=== PATIENT | female | born 1970 | race Caucasian/White ===

== ENCOUNTER 2016-09-16 14:10 | Outpatient (CLI) | END 2016-09-16 14:11 | disposition home or self-care (01) | LOC: LAB 14:10 | PROVIDERS: ATTEND Transplant Surgery | DX: N18.9 Chronic kidney disease, unspecified (principal) | CPT/HCPCS: 36415 ==

== ENCOUNTER 2016-10-26 10:49 | Outpatient (CLI) | END 2016-10-26 10:50 | disposition home or self-care (01) | LOC: LAB 10:49 | PROVIDERS: ATTEND Transplant Surgery | DX: N18.9 Chronic kidney disease, unspecified (principal) | CPT/HCPCS: 36415 ==

== ENCOUNTER 2016-11-05 14:14 | Outpatient (CLI) ==
--- NOTE | 2016-11-05 14:51 | DI ---
EXAM: PA and lateral views of the chest HISTORY: Kidney transplant evaluation COMPARISON: Chest x-ray 10/09/2015 FINDINGS: The cardiomediastinal silhouette is normal. There is no pneumothorax or pleural effusion . There is no consolidation, nodule or mass. The osseous structures are stable. IMPRESSION: No acute cardiopulmonary process or significant change from prior.
[2016-11-05 14:52] LABS: HEMATOCRIT 30.2 % (37.0-47.0); MEAN CORPUSCULAR HEMOGLOBIN 29.2 pg (27.0-31.0); MEAN CORPUSCULAR HGB CONC 33.1 (31.8-35.4); RED BLOOD COUNT 3.43 10^6/ul (4.20-5.40); WHITE BLOOD COUNT 7.09 K/ul (4.6-10.2)
[2016-11-05 15:07] LABS: ALBUMIN 3.8 g/dL (3.4-5.0); ALBUMIN/GLOBULIN RATIO 1.19; ANION GAP 16.2; BILIRUBIN,TOTAL 0.28 mg/dL (0.00-1.20); BUN/CREATININE RATIO 12.6; CALCIUM 8.5 mg/dL (8.2-10.2); CREATININE 3.49 mg/dL (0.60-1.30); PHOSPHORUS 5.7 mg/dL (2.5-4.9); POTASSIUM 4.2 mmol/L (3.5-5.10)
[2016-11-10 07:49] LABS: HEPATITIS B CORE ANTIBODY NEGATIVE
[2016-11-10 07:50] LABS: HIV ANTIBODIES QUALITATIVE NON REACTIVE (Nonreactive)
[2016-11-10 07:53] LABS: HEPATITIS B SURFACE ANTIBODY REACTIVE
== END 2016-11-05 14:15 | disposition home or self-care (01) ==
LOC: LAB 14:14
PROVIDERS: ATTEND Internal Medicine Nephrology
DX: N18.6 End stage renal disease (principal)
CPT/HCPCS: 36415; 80053; 83970; 84100; 85025; 85027; 86701; 86704; 86706; 86803; 87340; 93005; 93010

== ENCOUNTER 2016-11-13 14:23 | Outpatient (CLI) ==
[2016-11-13 15:04] LABS: HEMATOCRIT 30.8 % (37.0-47.0); HEMOGLOBIN 9.8 g/dl (12.0-16.0); MEAN CORPUSCULAR HEMOGLOBIN 29.2 pg (27.0-31.0); MEAN CORPUSCULAR HGB CONC 31.8 (31.8-35.4); MEAN CORPUSCULAR VOLUME 91.7 fl (81.0-99.0); RED BLOOD COUNT 3.36 10^6/ul (4.20-5.40); WHITE BLOOD COUNT 7.87 K/ul (4.6-10.2)
[2016-11-13 15:11] LABS: BILIRUBIN,URINE Negative (NEGATIVE); KETONES,URINE Negative (NEGATIVE); LEUKOCYTE ESTERASE ,URINE 1+ (NEGATIVE); NITRITE,URINE Negative (NEGATIVE); PROTEIN,URINE 2+ (NEGATIVE); URINE, BLOOD Trace-intact (NEGATIVE)
[2016-11-13 15:28] LABS: ADD URINE MICROSCOPIC YES
[2016-11-13 15:32] LABS: BACTERIA,URINE TRACE (NOT PRESENT)
[2016-11-13 15:49] LABS: ALBUMIN 3.6 g/dL (3.4-5.0); ALBUMIN/GLOBULIN RATIO 1.13; ANION GAP 15.2; BILIRUBIN,TOTAL 0.22 mg/dL (0.00-1.20); BUN/CREATININE RATIO 13.83; CALCIUM 8.9 mg/dL (8.2-10.2); CREATININE 3.47 mg/dL (0.60-1.30); PHOSPHORUS 4.8 mg/dL (2.5-4.9); POTASSIUM 4.2 mmol/L (3.5-5.10); TOTAL PROTEIN 6.8 g/dL (6.4-8.2); URIC ACID 7.6 mg/dL (2.4-6.0)
[2016-11-14 07:49] LABS: URINE CREATINE 70.6 mg/dL (Not Estab.)
== END 2016-11-13 14:24 | disposition home or self-care (01) ==
LOC: LAB 14:23
PROVIDERS: ATTEND Nurse Practitioner
DX: N18.5 Chronic kidney disease, stage 5 (principal)
CPT/HCPCS: 36415; 80053; 81001; 82306; 82570; 83735; 83970; 84100; 84156; 84550; 85027; 87086

== ENCOUNTER 2016-11-16 08:15 | Outpatient (CLI) ==
--- NOTE | 2016-11-16 13:00 | MRI ---
Exam: MRI of the abdomen without contrast and MRCP. History: MRCP evaluate for kidney transplant. Fluid signal cyst in pancreatic head/body on prior M RI. Procedures: Axial and coronal T2, axial T1W in and out of phase, axial inversion recovery, diffusio n weighted images with ADC maps and coronal heavily T2W MRCP images of the abdomen were obtained wit hout the use of contrast. Maximum intensity projection images were also created and reviewed. Comparison: 10/16/2015 MRCP. Findings: Evaluation of the soft tissues is limited without the use of intravenous contrast. 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 The cindy er is normal in size, without significant signal drop on opposed phase imaging. There is no apparen t intrahepatic mass or biliary ductal dilatation. The spleen and adrenal glands appear stable. Gio ng the anterior junction of the pancreatic head/body there is redemonstration of a T2 hyperintense, T1 hypointense structure measuring approximately 13 mm x 8 mm x 15 mm craniocaudal compared to 12 mm x 12 mm x 21 mm on the prior study. There is no new pancreatic lesion visualized. The kidneys ale ear mildly atrophic as before. There is no hydronephrosis. There are a few sub-centimeter fluid si gnal probable cysts in both kidneys. The stomach and the visualized portions of small and large bow el appear grossly within normal limits. In the right lower quadrant there is a well-circumscribed 2 .6 cm T2 hyperintense rounded lesion which measured up to 2.3 cm on the prior study. There is no fr ee fluid or lymphadenopathy identified in the abdomen. Abdominal aorta is not dilated. MRCP images are degraded by motion artifact, these demonstrate no intrahepatic biliary ductal dilatation. The gallbladder is nondilated, without filling defect. The common bile duct measures up to 6.6 mm in di ameter without filling defect. There is no pancreatic ductal dilatation or evidence of pancreatic d ivisum. Impressions: Compared to 10/16/2015 there is redemonstration of a posterior right diaphragmatic def ect with herniation of fat into the posterior right thorax. 13 mm x 8 mm x 15 mm fluid signal cystic structure along the anterior junction of the pancreatic hea d/body, this measured up to 12 mm x 12 mm x 21 mm previously. Considerations would include the panc reatic cyst and cystic neoplasm such as intraductal papillary mucinous neoplasm. No biliary ductal dilatation or evidence of choledocholithiasis. MRCP images are somewhat degraded by motion artifact. No pancreatic ductal dilatation. Redemonstration of bilateral renal atrophy with subcentimeter fluid signal probable cysts in the nicole al cortices. There is no hydronephrosis. 2.6 cm well-circumscribed fluid signal lesion in the right lower abdominal fat, this measured 2.3 cm on the previous examination.
--- NOTE | 2016-11-18 09:04 | MAMMO ---
EXAM: Bilateral digital screening mammogram History: Screening Comparison: Bilateral mammogram 10/16/2015 Findings: MLO and CC views of bilateral breasts demonstrate scattered fibroglandular breast parench yma. Stable benign bilateral lymph nodes. There are no suspicious masses or abnormal microcalcifica tions. Impression: Benign stable mammogram. Recommend followup routine screening mammography in 1 year. BIRADS 2
--- NOTE | 2016-11-19 07:15 | STRESSECHO ---
Date of Test: 11/16/2016 Reason for Exam: KIDNEY TRANSPLANT EVALUATION, STATUS POST VSD REPAIR Ordering Physician: DR. CM ([facility]), DR. HERNANDEZ Current Medications: ROCALTROL, LIPITOR, LEVOTHYROXINE, SODIUM BICARBONATE, AVAPRO, ULORIC, FERROUS SULFATE, PYRIDOXINE, ISONIAZID Physical Findings: S1,S2, NO S3 Resting EKG: SINUS RHYTHM/ NO ACUTE CHANGES Target Heart Rate: 146/172 Height: 64" Weight: 203lbs OXYGEN SATURATION AT REST ON ROOM AIR 98% STAGE MPH/GRADE HEART RATE BPM BLOOD PRESSURE mmhg RHYTHM S-T SEGMENT +/- UP DOWN SYMPTOMS,COMMENTS At Rest 75 118/62 SR X NONE 1 1.7/10% 150 148/90 SR X NONE 2 2.5/12% 3 3.4/14% 4 4.2/16% 5 5.0/18% Immediately after 164 SR X FATIGUE Durations of Exercise: 5 MINUTES AND 0 SECONDS Maximum Heart Rate Reached: 164 Reason for Termination: FATIGUE Minutes Post Exercise: 3 HeartRate: 105 Blood Pressure: 146/50 Rhythm: SR S-T Segment: +/- Symptons: NONE INTERPRETATION: 99% OXYGEN SATURATION WITH EXERCISE ON ROOM AIR METS=7.0 1. TEST NEGATIVE FOR ISCHEMIC ST-T WAVE CHANGES 2. NO CHEST PAIN OR CHEST DISCOMFORT 3. NO ARRHYTHMIAS 4. BLOOD PRESSURE RESPONSE NORMAL 5. NORMAL LEFT VENTRICULAR CONTRACTILITY RESTING AND POST EXERCISE MTDD
--- NOTE | 2016-11-19 08:58 | ECHOSTRESS ---
Date of Exam: 11/16/2016 Ordering Physician: DR. HERNANDEZ / DR. CM Reason for Echo: KIDNEY TRANSPLANT EVALUATION, HISTORY OF VSD REPAIR, STRESS TEST = NO ISCHEMIA Auscultation: S1,S2 M-Mode Normal Adult Results LV Dimensions Normal Adult Results AoV Opening excursions >1.6 LVEDD-base- 3.5-5.8 Ao root dimensions 2.0-3.7 LVESD-base- 3.1-4.6 L. Atrium dimensions 1.9-3.8 Post. Wall thickness 0.8-1.1 IV septum (thickness) 0.7-1.2 Post. Wall excursion 0.72-1.3 Septal motion Systolic motion R. Ventricular cavity 1.5-2.0 LVEF 60% Paradoxical septal wall motion 2-D: NORMAL LEFT VENTRICULAR CONTRACTILITY RESTING AND POST EXERCISE M-MODE: MV: AV: TV: PV: CHAMBER SIZE: WALL MOTION: NORMAL LEFT VENTRICULAR CONTRACTILITY RESTING AND POST EXERCISE PERICARDIUM: INTERPRETATION: 1. NORMAL LEFT VENTRICULAR CONTRACTILITY RESTING AND POST EXERCISE MTDD
== END 2016-11-16 08:16 | disposition home or self-care (01) ==
LOC: CAR 08:15
PROVIDERS: ATTEND Internal Medicine Nephrology
DX: N18.6 End stage renal disease (principal)

== ENCOUNTER 2016-11-20 05:59 | Outpatient (CLI) ==
--- NOTE | 2016-11-23 08:48 | ECHO2D ---
Date of Exam: 11/20/16 Ordering Physician: MAHESH HERNANDEZ Reason for Echo: KIDNEY TRANSPLANT EVAL, VSD REPAIR M-Mode Normal Adult Results LV Dimensions Normal Adult Results AoV Opening excursions >1.6 >1.6 LVEDD-base- 3.5-5.8 4.5 Ao root dimensions 2.0-3.7 3.7 LVESD-base- 3.1-4.6 L. Atrium dimensions 1.9-3.8 2.9 Post. Wall thickness 0.8-1.1 1.1 IV septum (thickness) 0.7-1.2 1.2 Post. Wall excursion 0.72-1.3 NORMAL Septal motion NORMAL Systolic motion R. Ventricular cavity 1.5-2.0 NORMAL LVEF 60% 65% Paradoxical septal wall motion NORMAL 2-D : 2-D M Mode Echocardiogram was performed using apical four chamber and left parasternal long and short axis views. Mitral, tricuspid and aortic valves appear to be normal. Contractility of the left ventricle seems to be normal, so is the cavity size. Left atrial cavity size and aortic root appear to be normal. There is no pericardial effusion. There is no thrombus noted in the left ventricular or left aortic cavity. No mitral valve prolapse noted. M-MODE: MV: NORMAL AV: NORMAL TV: NORMAL PV: CHAMBER SIZE: NORMAL WALL MOTION: NORMAL PERICARDIUM: NORMAL INTERPRETATION: 1. BORDERLINE LEFT VENTRICULAR HYPERTROPHY 2. NORMAL VALVES 3. NORMAL LEFT VENTRICULAR CONTRACTILITY MTDD
== END 2016-11-20 06:00 | disposition home or self-care (01) ==
LOC: CAR 05:59
PROVIDERS: ATTEND Internal Medicine
DX: Z01.810 Encounter for preprocedural cardiovascular examination (principal); Z87.74 Personal history of (corrected) congenital malformations of heart and circulatory system; N19 Unspecified kidney failure

== ENCOUNTER 2016-11-23 09:17 | Outpatient (CLI) | END 2016-11-23 09:18 | disposition home or self-care (01) | LOC: LAB 09:17 | PROVIDERS: ATTEND Transplant Surgery | DX: N18.9 Chronic kidney disease, unspecified (principal) | CPT/HCPCS: 36415 ==

== ENCOUNTER 2016-12-11 14:11 | Outpatient (CLI) | payer OTHER | END 2016-12-11 14:12 | disposition home or self-care (01) | LOC: LAB 14:11 | PROVIDERS: ATTEND Transplant Surgery | DX: N18.9 Chronic kidney disease, unspecified (principal) | CPT/HCPCS: 36415 ==

== ENCOUNTER 2016-12-21 15:10 | Outpatient (CLI) ==
[2016-12-21 16:00] LABS: CHOL/HDL RATIO 5.3 (4.5-5.5)
== END 2016-12-21 15:11 | disposition home or self-care (01) ==
LOC: LAB 15:10
PROVIDERS: ATTEND Internal Medicine
DX: I10 Essential (primary) hypertension (principal); E78.5 Hyperlipidemia, unspecified; D64.9 Anemia, unspecified; E03.9 Hypothyroidism, unspecified
CPT/HCPCS: 36415; 80061; 82607; 84439; 84443

== ENCOUNTER 2016-12-24 14:12 | Outpatient (CLI) ==
[2016-12-24 14:48] LABS: HEMOGLOBIN 9.9 g/dl (12.0-16.0); MEAN CORPUSCULAR HEMOGLOBIN 28.7 pg (27.0-31.0); MEAN CORPUSCULAR HGB CONC 31.9 (31.8-35.4); MEAN CORPUSCULAR VOLUME 89.9 fl (81.0-99.0); RED BLOOD COUNT 3.45 10^6/ul (4.20-5.40); WHITE BLOOD COUNT 7.09 K/ul (4.6-10.2)
[2016-12-24 15:06] LABS: BILIRUBIN,URINE Negative (NEGATIVE); KETONES,URINE Negative (NEGATIVE); LEUKOCYTE ESTERASE ,URINE 1+ (NEGATIVE); NITRITE,URINE Negative (NEGATIVE); PH,URINE 5.5 (5-9); PROTEIN,URINE 2+ (NEGATIVE); URINE, BLOOD Trace-lysed (NEGATIVE)
[2016-12-24 15:11] LABS: ADD URINE MICROSCOPIC YES
[2016-12-24 15:21] LABS: BACTERIA,URINE TRACE (NOT PRESENT)
[2016-12-24 15:29] LABS: ALBUMIN 3.8 g/dL (3.4-5.0); ALBUMIN/GLOBULIN RATIO 1.23; ANION GAP 15.4; BILIRUBIN,TOTAL 0.29 mg/dL (0.00-1.20); BUN/CREATININE RATIO 13.98; CALCIUM 9.3 mg/dL (8.2-10.2); PHOSPHORUS 5.5 mg/dL (2.5-4.9); POTASSIUM 4.4 mmol/L (3.5-5.10); TOTAL PROTEIN 6.9 g/dL (6.4-8.2); URIC ACID 8.9 mg/dL (2.4-6.0)
[2016-12-24 15:35] LABS: CREATININE 3.79 mg/dL (0.60-1.30)
== END 2016-12-24 14:13 | disposition home or self-care (01) ==
LOC: LAB 14:12
PROVIDERS: ATTEND Nurse Practitioner
DX: N18.5 Chronic kidney disease, stage 5 (principal)
CPT/HCPCS: 36415; 80053; 81001; 83735; 84100; 84550; 85027

== ENCOUNTER 2017-01-18 09:58 | Outpatient (CLI) | END 2017-01-18 09:59 | disposition home or self-care (01) | LOC: LAB 09:58 | PROVIDERS: ATTEND Transplant Surgery | DX: N18.9 Chronic kidney disease, unspecified (principal) | CPT/HCPCS: 36415 ==

== ENCOUNTER 2017-02-02 05:33 | Outpatient (CLI) | payer OTHER ==
[2017-02-02 05:49] LABS: HEMATOCRIT 30.3 % (37.0-47.0); HEMOGLOBIN 9.8 g/dl (12.0-16.0); MEAN CORPUSCULAR HEMOGLOBIN 29.6 pg (27.0-31.0); MEAN CORPUSCULAR HGB CONC 32.3 (31.8-35.4); MEAN CORPUSCULAR VOLUME 91.5 fl (81.0-99.0); RED BLOOD COUNT 3.31 10^6/ul (4.20-5.40); WHITE BLOOD COUNT 6.13 K/ul (4.6-10.2)
[2017-02-02 05:50] LABS: BILIRUBIN,URINE Negative (NEGATIVE); KETONES,URINE Negative (NEGATIVE); LEUKOCYTE ESTERASE ,URINE 1+ (NEGATIVE); NITRITE,URINE Negative (NEGATIVE); PH,URINE 6.5 (5-9); PROTEIN,URINE 2+ (NEGATIVE); URINE, BLOOD Trace-lysed (NEGATIVE)
[2017-02-02 05:52] LABS: ADD URINE MICROSCOPIC YES
[2017-02-02 05:55] LABS: BACTERIA,URINE TRACE (NOT PRESENT)
[2017-02-02 06:10] LABS: ALBUMIN 3.5 g/dL (3.4-5.0); ALBUMIN/GLOBULIN RATIO 1.4; ANION GAP 11.4; BILIRUBIN,TOTAL 0.24 mg/dL (0.00-1.20); BUN/CREATININE RATIO 13.93; CALCIUM 8.8 mg/dL (8.2-10.2); CHOL/HDL RATIO 4.2 (4.5-5.5); CREATININE 3.3 mg/dL (0.60-1.30); PHOSPHORUS 5.1 mg/dL (2.5-4.9); POTASSIUM 4.4 mmol/L (3.5-5.10)
[2017-02-03 08:22] LABS: URINE CREATINE 54.9 mg/dL (Not Estab.)
== END 2017-02-02 05:34 | disposition home or self-care (01) ==
LOC: LAB 05:33
PROVIDERS: ATTEND Nurse Practitioner
DX: N18.5 Chronic kidney disease, stage 5 (principal)
CPT/HCPCS: 36415; 80053; 80061; 81001; 82570; 83735; 84100; 84156; 85025; 85027; 87086

== ENCOUNTER 2017-02-11 14:10 | Outpatient (CLI) | payer OTHER | END 2017-02-11 14:11 | disposition home or self-care (01) | LOC: LAB 14:10 | PROVIDERS: ATTEND Transplant Surgery | DX: N18.9 Chronic kidney disease, unspecified (principal) | CPT/HCPCS: 36415 ==

== ENCOUNTER 2017-03-06 20:06 | Emergency (ER) ==
[2017-03-06 20:18] VITALS: BP 108/78; TEMP 99.6; BMI 34.3
--- NOTE | 2017-03-06 20:23 | ED.PDOC ---
General ED Provider: Dr. NATALYA SMALL-ER Chief Complaint: Wound Check Stated Complaint: i had some drainage from the drain hole--no bleeding--i was on the commode and it felt wet Time Seen by Physician: 20:10 Mode of Arrival: Wheelchair Information Source: Patient, Family Exam Limitations: No limitations Primary Care Provider: MAHESH HERNANDEZ Nursing and Triage Documentation Reviewed and Agree: Yes Skin Complaint Exam - Skin/Soft Tissue Complaint/Exam Onset/Duration: 1 hr ago Symptoms Are: Resolved Initial Severity: Mild Current Severity: Mild Location: abdomen Character: Denies: Redness, Swelling, Raised, Painful Aggravating: Reports: None Alleviating: Reports: None Associated Signs and Symptoms: Reports: Drainage. Denies: Fever, Chills, Itching, Bruising, Tenderness, Red streaks, Joint swelling Recent Exposure to Others w/Similar Symptoms: No Skin Findings: Present: Normal findings. Absent: Erythema, Induration, Fluctuant mass, Lymphadenopathy, Lymphangitic streaking, Dry scaly skin, Skin lesion, Weeping skin, Wet ulceration, Dry ulceration, Pustules, Other Joint Tenderness Present: No Differential Diagnoses: Other (healing wound) Review of Systems - Review Of Systems Constitutional: Reports: No symptoms Eyes: Reports: No symptoms Ears, Nose, Mouth, Throat: Reports: No symptoms Respiratory: Reports: No symptoms Cardiac: Reports: No symptoms GI: Reports: No symptoms : Reports: No symptoms Musculoskeletal: Reports: No symptoms Skin: Reports: No symptoms Neurological: Reports: No symptoms Endocrine: Reports: No symptoms Hematologic/Lymphatic: Reports: No symptoms All Other Systems: Reviewed and Negative Past Medical History - Past Medical History Previously Healthy: No Endocrine: Reports: Unknown Cardiovascular: Reports: Unknown Respiratory: Reports: Unknown Hematological: Reports: Unknown Gastrointestinal: Reports: Unknown Genitourinary: Reports: CKD Neuro/Psych: Reports: Unknown Musculoskeletal: Reports: Unknown Cancer: Reports: Unknown Last Menstrual Period: 2013 - Surgical History General Surgical History: Reports: Other (renal transplant) - Family History Family History: Reports: Unknown - Social History Smoking Status: Never smoker Hx Substance Use: No Alcohol Screening: None Lives: With family - Immunizations Tetanus Shot up to Date: Yes Physical Exam - Physical Exam Appearance: Well-appearing, No pain distress, Well-nourished Eyes: JONATHAN ENT: Ears normal, Nose normal, Oropharynx normal Neck: Supple Respiratory: Airway patent, Breath sounds clear, Breath sounds equal, Respirations nonlabored Cardiovascular: RRR, Pulses normal, No rub, No murmur GI/: Soft Musculoskeletal: Normal strength, ROM intact, No edema, No calf tenderness Skin: Warm, Dry, Normal color Neurological: Sensation intact, Motor intact, Reflexes intact, Cranial nerves intact, Alert, Oriented Psychiatric: Affect appropriate, Mood appropriate, Anxious Re-Evaluation - Re-Evaluation Time of Re-Evaluation: 20:46 Status: Improved (no bleeding or drainage) Vital Signs Stable: Yes Pain Level: 0 Appearance: NAD Lungs: Clear Skin: Warm and Dry Neuro: Alert and Oriented X3 CV: RRR Physician Notification - Case Discussed Physician Notified: ismael with transplant office --recommended dresssing changes and monitoring Critical Care Note - Critical Care Note Total Time (mins): 0 Course - Course Vital Signs: Temp Pulse Resp BP Pulse Ox 03/06/17 20:07 99.6 F 103 H 20 108/78 96 karlas incision looks great--no evidence of infection or bloody drainage--i suspect some serous fluid leaked from the incision when she sat down on the commode =--no bleeding--discussed with the transplant service-- Departure - Departure Time of Disposition: 20:46 Disposition: HOME SELF-CARE Discharge Problem: Wound Instructions: Acute Wounds (ED) Condition: Good Pt referred to PMD for follow-up: Yes Additional Instructions: continue wound care--dressing changes per [facility]--transplant service advised to call if the fluid becomes purulent or if any fever ...also if the drainage does not improve tomorrow call the service and they plan on re-inserting the drain tube Allergies/Adverse Reactions: Allergies acetaminophen [From Lortab] Adverse Reaction (Verified 03/06/17 20:18) hydrocodone bitartrate [From Lortab] Adverse Reaction (Verified 03/06/17 20:18) lisinopril Adverse Reaction (Verified 03/06/17 20:18) Home Medications: Ambulatory Orders Atorvastatin Calcium [Lipitor] 20 mg PO DAILY 03/12/14 Acetaminophen 1,000 mg PO Q6H PRN 03/06/17 Aspirin [Aspirin Chewable] 81 mg PO DAILY 03/06/17 Cholecalciferol (Vitamin D3) [Vitamin D3] 2,000 unit PO DAILY 03/06/17 Famotidine 20 mg PO DAILY 03/06/17 Fluconazole 200 mg PO WEEKLY 03/06/17 Fosfomycin Tromethamine [Monurol] 3 gm PO DIRECTED 03/06/17 Levothyroxine Sodium [Synthroid] 50 mcg PO QDAC 03/06/17 Mycophenolate Sodium [Mycophenolic Acid] 360 mg PO BID 03/06/17 Oxycodone HCl [Oxycodone] 5 mg PO Q4H PRN 03/06/17 Prednisone 20 mg PO DAILYWM 03/06/17 Sennosides/Docusate Sodium [Docusate Sodium-Senna Tablet] 1 tab PO BID 03/06/17 Sulfamethoxazole/Trimethoprim [Bactrim Ds 800/160 mg] 1 tab PO DAILY 03/06/17 Tacrolimus [Envarsus Xr] 3 mg PO DAILY 03/06/17 Valganciclovir HCl [Valcyte] 450 mg PO DAILY 03/06/17 Disposition Discussed With: Patient
== END 2017-03-06 21:55 | disposition home or self-care (01) ==
LOC: ED 20:06
DX: S31.109A Unspecified open wound of abdominal wall, unspecified quadrant without penetration into peritoneal cavity, initial encounter (principal); Z94.0 Kidney transplant status; Z98.890 Other specified postprocedural states; N18.9 Chronic kidney disease, unspecified; Z79.899 Other long term (current) drug therapy
CPT/HCPCS: 99282

== ENCOUNTER 2017-03-09 09:36 | Outpatient (CLI) ==
[2017-03-09 09:46] LABS: HEMATOCRIT 28.3 % (37.0-47.0); HEMOGLOBIN 9.2 g/dl (12.0-16.0); MEAN CORPUSCULAR HEMOGLOBIN 29.4 pg (27.0-31.0); MEAN CORPUSCULAR HGB CONC 32.5 (31.8-35.4); MEAN CORPUSCULAR VOLUME 90.4 fl (81.0-99.0); PLATELET COUNT 212 10^3/uL (140-440); RED BLOOD COUNT 3.13 10^6/ul (4.20-5.40)
[2017-03-09 10:13] LABS: ANISOCYTOSIS NOT PRESENT (NOT PRESENT)
[2017-03-09 10:16] LABS: ANION GAP 14.6; BUN/CREATININE RATIO 21.73; CALCIUM 8.8 mg/dL (8.2-10.2); CREATININE 0.69 mg/dL (0.60-1.30); PHOSPHORUS 3.1 mg/dL (2.5-4.9); POTASSIUM 3.6 mmol/L (3.5-5.10)
== END 2017-03-09 09:37 | disposition home or self-care (01) ==
LOC: NONPT 09:36
PROVIDERS: ATTEND Transplant Surgery
DX: Z94.0 Kidney transplant status (principal); N18.9 Chronic kidney disease, unspecified
CPT/HCPCS: 80069; 80197; 85007; 85025

== ENCOUNTER 2017-03-11 09:13 | Outpatient (CLI) ==
[2017-03-11 09:29] LABS: HEMATOCRIT 27.5 % (37.0-47.0); HEMOGLOBIN 9.1 g/dl (12.0-16.0); MEAN CORPUSCULAR HGB CONC 33.1 (31.8-35.4); MEAN CORPUSCULAR VOLUME 90.8 fl (81.0-99.0); PLATELET COUNT 167 10^3/uL (140-440); RED BLOOD COUNT 3.03 10^6/ul (4.20-5.40); WHITE BLOOD COUNT 9.02 K/ul (4.6-10.2)
[2017-03-11 09:54] LABS: ANION GAP 14.7; BUN/CREATININE RATIO 17.14; CALCIUM 8.6 mg/dL (8.2-10.2); CREATININE 0.7 mg/dL (0.60-1.30); PHOSPHORUS 3.4 mg/dL (2.5-4.9); POTASSIUM 3.7 mmol/L (3.5-5.10)
[2017-03-11 10:02] LABS: ANISOCYTOSIS NOT PRESENT (NOT PRESENT)
== END 2017-03-11 09:14 | disposition home or self-care (01) ==
LOC: NONPT 09:13
PROVIDERS: ATTEND Transplant Surgery
DX: Z94.0 Kidney transplant status (principal)
CPT/HCPCS: 80069; 80197; 85007; 85025

== ENCOUNTER 2017-03-15 09:20 | Outpatient (CLI) | payer OTHER ==
[2017-03-15 09:25] LABS: BASOPHILS % (AUTO) 0.2 % (0.0-3.0); EOSINOPHILS # (AUTO) 0.8 K/ul (0.0-0.7); EOSINOPHILS % (AUTO) 7.6 % (0.0-7.0); HEMATOCRIT 30.7 % (37.0-47.0); IMMATURE GRANULOCYTE % (AUTO) 0.4 % (0.0-5.0); LYMPHOCYTES # (AUTO) 1.1 K/uL (0.60-3.4); LYMPHOCYTES % (AUTO) 11.1 (10.0-50.0); MEAN CORPUSCULAR HEMOGLOBIN 29.4 pg (27.0-31.0); MEAN CORPUSCULAR HGB CONC 32.6 (31.8-35.4); MEAN CORPUSCULAR VOLUME 90.3 fl (81.0-99.0); MONOCYTES # (AUTO) 0.3 K/uL (0.4-2.0); NEUTROPHILS # (AUTO) 7.8 K/ul (2.0-6.9); NEUTROPHILS % (AUTO) 77.7; PLATELET COUNT 199 10^3/uL (140-440); WHITE BLOOD COUNT 9.98 K/ul (4.6-10.2)
[2017-03-15 09:44] LABS: ALBUMIN 3.1 g/dL (3.4-5.0); ANION GAP 15.9; BUN/CREATININE RATIO 22.47; CALCIUM 8.8 mg/dL (8.2-10.2); CREATININE 0.89 mg/dL (0.60-1.30); PHOSPHORUS 3.4 mg/dL (2.5-4.9); POTASSIUM 3.9 mmol/L (3.5-5.10)
== END 2017-03-15 09:21 | disposition home or self-care (01) ==
LOC: NONPT 09:20
PROVIDERS: ATTEND Transplant Surgery
DX: Z94.0 Kidney transplant status (principal); N39.0 Urinary tract infection, site not specified
CPT/HCPCS: 80069; 80197; 85025

== ENCOUNTER 2017-03-18 09:14 | Outpatient (CLI) ==
[2017-03-18 09:21] LABS: BASOPHILS % (AUTO) 0.3 % (0.0-3.0); EOSINOPHILS # (AUTO) 0.5 K/ul (0.0-0.7); EOSINOPHILS % (AUTO) 7.6 % (0.0-7.0); HEMATOCRIT 31.6 % (37.0-47.0); IMMATURE GRANULOCYTE % (AUTO) 0.3 % (0.0-5.0); LYMPHOCYTES # (AUTO) 1.2 K/uL (0.60-3.4); LYMPHOCYTES % (AUTO) 16.7 (10.0-50.0); MEAN CORPUSCULAR HEMOGLOBIN 29.7 pg (27.0-31.0); MEAN CORPUSCULAR HGB CONC 31.6 (31.8-35.4); MEAN CORPUSCULAR VOLUME 93.8 fl (81.0-99.0); MONOCYTES # (AUTO) 0.3 K/uL (0.4-2.0); MONOCYTES % (AUTO) 4.2 (0-10); NEUTROPHILS # (AUTO) 4.9 K/ul (2.0-6.9); NEUTROPHILS % (AUTO) 70.9; PLATELET COUNT 220 10^3/uL (140-440); RED BLOOD COUNT 3.37 10^6/ul (4.20-5.40); WHITE BLOOD COUNT 6.87 K/ul (4.6-10.2)
[2017-03-18 09:45] LABS: ALBUMIN 3.1 g/dL (3.4-5.0); ANION GAP 16.4; BUN/CREATININE RATIO 20.73; CREATININE 0.82 mg/dL (0.60-1.30); PHOSPHORUS 3.5 mg/dL (2.5-4.9); POTASSIUM 4.4 mmol/L (3.5-5.10)
== END 2017-03-18 09:15 | disposition home or self-care (01) ==
LOC: NONPT 09:14
PROVIDERS: ATTEND Transplant Surgery
DX: Z94.0 Kidney transplant status (principal)
CPT/HCPCS: 80069; 80197; 85025

== ENCOUNTER 2017-03-22 09:23 | Outpatient (CLI) ==
[2017-03-22 09:47] LABS: BASOPHILS % (AUTO) 0.6 % (0.0-3.0); EOSINOPHILS # (AUTO) 0.4 K/ul (0.0-0.7); EOSINOPHILS % (AUTO) 6.7 % (0.0-7.0); HEMOGLOBIN 10.4 g/dl (12.0-16.0); IMMATURE GRANULOCYTE % (AUTO) 0.8 % (0.0-5.0); LYMPHOCYTES # (AUTO) 1.3 K/uL (0.60-3.4); LYMPHOCYTES % (AUTO) 19.8 (10.0-50.0); MEAN CORPUSCULAR HEMOGLOBIN 29.7 pg (27.0-31.0); MEAN CORPUSCULAR HGB CONC 32.5 (31.8-35.4); MEAN CORPUSCULAR VOLUME 91.4 fl (81.0-99.0); MONOCYTES # (AUTO) 0.2 K/uL (0.4-2.0); MONOCYTES % (AUTO) 3.4 (0-10); NEUTROPHILS # (AUTO) 4.4 K/ul (2.0-6.9); NEUTROPHILS % (AUTO) 68.7; PLATELET COUNT 287 10^3/uL (140-440); WHITE BLOOD COUNT 6.43 K/ul (4.6-10.2)
[2017-03-22 10:17] LABS: ALBUMIN 3.5 g/dL (3.4-5.0); ANION GAP 17.4; BUN/CREATININE RATIO 20.61; CALCIUM 9.4 mg/dL (8.2-10.2); CREATININE 0.97 mg/dL (0.60-1.30); PHOSPHORUS 4.1 mg/dL (2.5-4.9); POTASSIUM 4.4 mmol/L (3.5-5.10)
== END 2017-03-22 09:24 | disposition home or self-care (01) ==
LOC: NONPT 09:23
PROVIDERS: ATTEND Transplant Surgery
DX: Z48.22 Encounter for aftercare following kidney transplant (principal); Z94.0 Kidney transplant status; N39.0 Urinary tract infection, site not specified
CPT/HCPCS: 80069; 80197; 85025

== ENCOUNTER 2017-03-25 08:53 | Outpatient (CLI) | payer OTHER ==
[2017-03-25 09:03] LABS: BASOPHILS # (AUTO) 0.1 K/uL (0-0.2); BASOPHILS % (AUTO) 0.7 % (0.0-3.0); EOSINOPHILS # (AUTO) 0.5 K/ul (0.0-0.7); HEMATOCRIT 32.1 % (37.0-47.0); HEMOGLOBIN 10.4 g/dl (12.0-16.0); IMMATURE GRANULOCYTE % (AUTO) 0.3 % (0.0-5.0); LYMPHOCYTES # (AUTO) 1.1 K/uL (0.60-3.4); LYMPHOCYTES % (AUTO) 16.1 (10.0-50.0); MEAN CORPUSCULAR HEMOGLOBIN 29.6 pg (27.0-31.0); MEAN CORPUSCULAR HGB CONC 32.4 (31.8-35.4); MEAN CORPUSCULAR VOLUME 91.5 fl (81.0-99.0); MONOCYTES # (AUTO) 0.2 K/uL (0.4-2.0); NEUTROPHILS # (AUTO) 5.1 K/ul (2.0-6.9); NEUTROPHILS % (AUTO) 72.9; PLATELET COUNT 246 10^3/uL (140-440); RED BLOOD COUNT 3.51 10^6/ul (4.20-5.40); WHITE BLOOD COUNT 7.02 K/ul (4.6-10.2)
[2017-03-25 09:18] LABS: ALBUMIN 3.6 g/dL (3.4-5.0); ANION GAP 16.2; BUN/CREATININE RATIO 19.79; CALCIUM 9.5 mg/dL (8.2-10.2); CREATININE 0.96 mg/dL (0.60-1.30); PHOSPHORUS 3.8 mg/dL (2.5-4.9); POTASSIUM 4.2 mmol/L (3.5-5.10)
== END 2017-03-25 08:54 | disposition home or self-care (01) ==
LOC: NONPT 08:53
PROVIDERS: ATTEND Transplant Surgery
DX: Z94.0 Kidney transplant status (principal)
CPT/HCPCS: 80069; 80197; 85025

== ENCOUNTER 2017-03-29 09:45 | Outpatient (CLI) ==
[2017-03-29 10:48] LABS: BASOPHILS % (AUTO) 0.7 % (0.0-3.0); EOSINOPHILS # (AUTO) 0.5 K/ul (0.0-0.7); EOSINOPHILS % (AUTO) 8.4 % (0.0-7.0); HEMATOCRIT 32.1 % (37.0-47.0); HEMOGLOBIN 10.6 g/dl (12.0-16.0); IMMATURE GRANULOCYTE % (AUTO) 0.3 % (0.0-5.0); LYMPHOCYTES # (AUTO) 1.1 K/uL (0.60-3.4); MEAN CORPUSCULAR HEMOGLOBIN 30.5 pg (27.0-31.0); MEAN CORPUSCULAR VOLUME 92.2 fl (81.0-99.0); MONOCYTES # (AUTO) 0.2 K/uL (0.4-2.0); MONOCYTES % (AUTO) 3.4 (0-10); NEUTROPHILS # (AUTO) 4.1 K/ul (2.0-6.9); NEUTROPHILS % (AUTO) 69.2; PLATELET COUNT 183 10^3/uL (140-440); RED BLOOD COUNT 3.48 10^6/ul (4.20-5.40); WHITE BLOOD COUNT 5.94 K/ul (4.6-10.2)
[2017-03-29 11:11] LABS: ALBUMIN 3.7 g/dL (3.4-5.0); BUN/CREATININE RATIO 16.66; CALCIUM 9.2 mg/dL (8.2-10.2); CREATININE 1.02 mg/dL (0.60-1.30); PHOSPHORUS 3.7 mg/dL (2.5-4.9)
== END 2017-03-29 09:46 | disposition home or self-care (01) ==
LOC: NONPT 09:45
PROVIDERS: ATTEND Transplant Surgery
DX: Z94.0 Kidney transplant status (principal)
CPT/HCPCS: 80069; 80197; 85025

== ENCOUNTER 2017-04-01 09:22 | Outpatient (CLI) ==
[2017-04-01 09:33] LABS: BASOPHILS % (AUTO) 0.7 % (0.0-3.0); EOSINOPHILS # (AUTO) 0.4 K/ul (0.0-0.7); EOSINOPHILS % (AUTO) 7.6 % (0.0-7.0); HEMATOCRIT 33.2 % (37.0-47.0); HEMOGLOBIN 10.6 g/dl (12.0-16.0); IMMATURE GRANULOCYTE % (AUTO) 0.4 % (0.0-5.0); LYMPHOCYTES % (AUTO) 18.2 (10.0-50.0); MEAN CORPUSCULAR HEMOGLOBIN 29.8 pg (27.0-31.0); MEAN CORPUSCULAR HGB CONC 31.9 (31.8-35.4); MEAN CORPUSCULAR VOLUME 93.3 fl (81.0-99.0); MONOCYTES # (AUTO) 0.2 K/uL (0.4-2.0); MONOCYTES % (AUTO) 3.1 (0-10); NEUTROPHILS # (AUTO) 3.8 K/ul (2.0-6.9); PLATELET COUNT 194 10^3/uL (140-440); RED BLOOD COUNT 3.56 10^6/ul (4.20-5.40); WHITE BLOOD COUNT 5.43 K/ul (4.6-10.2)
[2017-04-01 09:52] LABS: ALBUMIN 3.7 g/dL (3.4-5.0); ANION GAP 12.3; BUN/CREATININE RATIO 15.21; CALCIUM 9.5 mg/dL (8.2-10.2); CREATININE 0.92 mg/dL (0.60-1.30); PHOSPHORUS 3.3 mg/dL (2.5-4.9); POTASSIUM 4.3 mmol/L (3.5-5.10)
== END 2017-04-01 09:23 | disposition home or self-care (01) ==
LOC: NONPT 09:22
PROVIDERS: ATTEND Transplant Surgery
DX: Z94.0 Kidney transplant status (principal)
CPT/HCPCS: 80069; 80197; 85025

== ENCOUNTER 2017-04-05 09:11 | Outpatient (CLI) ==
[2017-04-05 09:19] LABS: BASOPHILS % (AUTO) 0.7 % (0.0-3.0); EOSINOPHILS # (AUTO) 0.3 K/ul (0.0-0.7); EOSINOPHILS % (AUTO) 6.7 % (0.0-7.0); HEMATOCRIT 30.7 % (37.0-47.0); HEMOGLOBIN 10.1 g/dl (12.0-16.0); IMMATURE GRANULOCYTE % (AUTO) 0.2 % (0.0-5.0); LYMPHOCYTES % (AUTO) 20.8 (10.0-50.0); MEAN CORPUSCULAR HEMOGLOBIN 30.2 pg (27.0-31.0); MEAN CORPUSCULAR HGB CONC 32.9 (31.8-35.4); MEAN CORPUSCULAR VOLUME 91.9 fl (81.0-99.0); MONOCYTES # (AUTO) 0.2 K/uL (0.4-2.0); MONOCYTES % (AUTO) 4.1 (0-10); NEUTROPHILS # (AUTO) 3.1 K/ul (2.0-6.9); NEUTROPHILS % (AUTO) 67.5; PLATELET COUNT 185 10^3/uL (140-440); RED BLOOD COUNT 3.34 10^6/ul (4.20-5.40); WHITE BLOOD COUNT 4.61 K/ul (4.6-10.2)
[2017-04-05 09:35] LABS: ALBUMIN 3.6 g/dL (3.4-5.0); ANION GAP 13.3; BUN/CREATININE RATIO 21.5; CALCIUM 9.3 mg/dL (8.2-10.2); CREATININE 0.93 mg/dL (0.60-1.30); PHOSPHORUS 3.5 mg/dL (2.5-4.9); POTASSIUM 4.3 mmol/L (3.5-5.10)
== END 2017-04-05 09:12 | disposition home or self-care (01) ==
LOC: NONPT 09:11
PROVIDERS: ATTEND Transplant Surgery
DX: Z94.0 Kidney transplant status (principal)
CPT/HCPCS: 80069; 80197; 85025

== ENCOUNTER 2017-04-06 10:24 | Outpatient (CLI) ==
[2017-04-06 10:44] LABS: HEMATOCRIT 32.2 % (37.0-47.0); HEMOGLOBIN 10.3 g/dl (12.0-16.0); MEAN CORPUSCULAR HEMOGLOBIN 30.7 pg (27.0-31.0); MEAN CORPUSCULAR VOLUME 95.8 fl (81.0-99.0); RED BLOOD COUNT 3.36 10^6/ul (4.20-5.40); WHITE BLOOD COUNT 5.43 K/ul (4.6-10.2)
[2017-04-06 11:04] LABS: ALBUMIN 3.6 g/dL (3.4-5.0); ALBUMIN/GLOBULIN RATIO 1.44; ANION GAP 13.8; BILIRUBIN,TOTAL 0.28 mg/dL (0.00-1.20); BUN/CREATININE RATIO 18.08; CREATININE 0.94 mg/dL (0.60-1.30); MAGNESIUM 1.5 mg/dL (1.7-2.2); PHOSPHORUS 3.3 mg/dL (2.5-4.9); POTASSIUM 3.8 mmol/L (3.5-5.10); TOTAL PROTEIN 6.1 g/dL (6.4-8.2); URIC ACID 5.3 mg/dL (2.4-6.0)
[2017-04-06 14:11] LABS: BILIRUBIN,URINE Negative (NEGATIVE); KETONES,URINE Negative (NEGATIVE); LEUKOCYTE ESTERASE ,URINE Trace (NEGATIVE); NITRITE,URINE Negative (NEGATIVE); PH,URINE 5.5 (5-9); PROTEIN,URINE 1+ (NEGATIVE); URINE, BLOOD Negative (NEGATIVE)
[2017-04-06 14:17] LABS: ADD URINE MICROSCOPIC YES
[2017-04-06 14:21] LABS: BACTERIA,URINE TRACE (NOT PRESENT)
[2017-04-07 09:37] LABS: URINE CREATINE 159.2 mg/dL (Not Estab.)
== END 2017-04-06 10:25 | disposition home or self-care (01) ==
LOC: LAB 10:24
PROVIDERS: ATTEND Nurse Practitioner
DX: N18.5 Chronic kidney disease, stage 5 (principal)
CPT/HCPCS: 36415; 80053; 81001; 82570; 83735; 84100; 84156; 84550; 85027

== ENCOUNTER 2017-04-08 09:25 | Outpatient (CLI) ==
[2017-04-08 09:31] LABS: EOSINOPHILS # (AUTO) 0.3 K/ul (0.0-0.7); HEMATOCRIT 31.7 % (37.0-47.0); HEMOGLOBIN 10.5 g/dl (12.0-16.0); IMMATURE GRANULOCYTE % (AUTO) 0.2 % (0.0-5.0); LYMPHOCYTES % (AUTO) 23.2 (10.0-50.0); MEAN CORPUSCULAR HEMOGLOBIN 30.5 pg (27.0-31.0); MEAN CORPUSCULAR HGB CONC 33.1 (31.8-35.4); MEAN CORPUSCULAR VOLUME 92.2 fl (81.0-99.0); MONOCYTES # (AUTO) 0.2 K/uL (0.4-2.0); MONOCYTES % (AUTO) 4.1 (0-10); NEUTROPHILS # (AUTO) 2.7 K/ul (2.0-6.9); NEUTROPHILS % (AUTO) 65.5; PLATELET COUNT 200 10^3/uL (140-440); RED BLOOD COUNT 3.44 10^6/ul (4.20-5.40); WHITE BLOOD COUNT 4.14 K/ul (4.6-10.2)
[2017-04-08 09:46] LABS: ALBUMIN 3.6 g/dL (3.4-5.0); ANION GAP 15.3; BUN/CREATININE RATIO 21.27; CALCIUM 9.3 mg/dL (8.2-10.2); CREATININE 0.94 mg/dL (0.60-1.30); POTASSIUM 4.3 mmol/L (3.5-5.10)
== END 2017-04-08 09:26 | disposition home or self-care (01) ==
LOC: NONPT 09:25
PROVIDERS: ATTEND Transplant Surgery
DX: Z94.0 Kidney transplant status (principal)
CPT/HCPCS: 80069; 80197; 85025

== ENCOUNTER 2017-04-12 08:21 | Outpatient (CLI) ==
[2017-04-09 14:10] VITALS: BMI 34.3
[2017-04-12 08:43] LABS: BASOPHILS % (AUTO) 0.5 % (0.0-3.0); EOSINOPHILS # (AUTO) 0.3 K/ul (0.0-0.7); EOSINOPHILS % (AUTO) 5.3 % (0.0-7.0); HEMATOCRIT 34.3 % (37.0-47.0); HEMOGLOBIN 10.9 g/dl (12.0-16.0); IMMATURE GRANULOCYTE % (AUTO) 0.4 % (0.0-5.0); LYMPHOCYTES % (AUTO) 18.8 (10.0-50.0); MEAN CORPUSCULAR HEMOGLOBIN 30.2 pg (27.0-31.0); MEAN CORPUSCULAR HGB CONC 31.8 (31.8-35.4); MONOCYTES # (AUTO) 0.3 K/uL (0.4-2.0); MONOCYTES % (AUTO) 5.3 (0-10); NEUTROPHILS # (AUTO) 3.8 K/ul (2.0-6.9); NEUTROPHILS % (AUTO) 69.7; PLATELET COUNT 223 10^3/uL (140-440); RED BLOOD COUNT 3.61 10^6/ul (4.20-5.40); WHITE BLOOD COUNT 5.49 K/ul (4.6-10.2)
[2017-04-12 09:21] LABS: ALBUMIN 3.8 g/dL (3.4-5.0); ANION GAP 14.3; BUN/CREATININE RATIO 21.11; CALCIUM 9.2 mg/dL (8.2-10.2); CREATININE 0.9 mg/dL (0.60-1.30); PHOSPHORUS 3.5 mg/dL (2.5-4.9); POTASSIUM 4.3 mmol/L (3.5-5.10)
== END 2017-04-12 08:22 | disposition home or self-care (01) ==
LOC: LAB 08:21
PROVIDERS: ATTEND Internal Medicine Nephrology
DX: Z94.0 Kidney transplant status (principal); Z79.899 Other long term (current) drug therapy; E78.5 Hyperlipidemia, unspecified
CPT/HCPCS: 36415; 80069; 80197; 85025; 87799

== ENCOUNTER 2017-04-19 09:05 | Outpatient (CLI) ==
[2017-04-09 14:10] VITALS: BMI 34.3
[2017-04-19 09:15] LABS: BASOPHILS % (AUTO) 0.6 % (0.0-3.0); EOSINOPHILS # (AUTO) 0.2 K/ul (0.0-0.7); EOSINOPHILS % (AUTO) 3.4 % (0.0-7.0); HEMATOCRIT 34.9 % (37.0-47.0); HEMOGLOBIN 11.3 g/dl (12.0-16.0); IMMATURE GRANULOCYTE % (AUTO) 0.4 % (0.0-5.0); LYMPHOCYTES % (AUTO) 20.6 (10.0-50.0); MEAN CORPUSCULAR HEMOGLOBIN 30.3 pg (27.0-31.0); MEAN CORPUSCULAR HGB CONC 32.4 (31.8-35.4); MEAN CORPUSCULAR VOLUME 93.6 fl (81.0-99.0); MONOCYTES # (AUTO) 0.2 K/uL (0.4-2.0); MONOCYTES % (AUTO) 4.6 (0-10); NEUTROPHILS # (AUTO) 3.5 K/ul (2.0-6.9); NEUTROPHILS % (AUTO) 70.4; PLATELET COUNT 236 10^3/uL (140-440); RED BLOOD COUNT 3.73 10^6/ul (4.20-5.40); WHITE BLOOD COUNT 5.01 K/ul (4.6-10.2)
[2017-04-19 09:39] LABS: ANION GAP 15.1; BUN/CREATININE RATIO 24.71; CALCIUM 9.7 mg/dL (8.2-10.2); CREATININE 0.89 mg/dL (0.60-1.30); POTASSIUM 4.1 mmol/L (3.5-5.10)
== END 2017-04-19 09:06 | disposition home or self-care (01) ==
LOC: LAB 09:05
PROVIDERS: ATTEND Internal Medicine Nephrology
DX: Z94.0 Kidney transplant status (principal); Z79.899 Other long term (current) drug therapy; E78.5 Hyperlipidemia, unspecified
CPT/HCPCS: 36415; 80069; 80197; 85025

== ENCOUNTER 2017-04-26 09:02 | Outpatient (CLI) ==
[2017-04-09 14:10] VITALS: BMI 34.3
[2017-04-26 09:16] LABS: BASOPHILS % (AUTO) 0.7 % (0.0-3.0); EOSINOPHILS # (AUTO) 0.2 K/ul (0.0-0.7); HEMATOCRIT 35.6 % (37.0-47.0); HEMOGLOBIN 11.6 g/dl (12.0-16.0); IMMATURE GRANULOCYTE % (AUTO) 0.5 % (0.0-5.0); LYMPHOCYTES % (AUTO) 17.9 (10.0-50.0); MEAN CORPUSCULAR HEMOGLOBIN 30.6 pg (27.0-31.0); MEAN CORPUSCULAR HGB CONC 32.6 (31.8-35.4); MEAN CORPUSCULAR VOLUME 93.9 fl (81.0-99.0); MONOCYTES # (AUTO) 0.3 K/uL (0.4-2.0); MONOCYTES % (AUTO) 5.1 (0-10); NEUTROPHILS # (AUTO) 4.1 K/ul (2.0-6.9); NEUTROPHILS % (AUTO) 71.8; PLATELET COUNT 209 10^3/uL (140-440); RED BLOOD COUNT 3.79 10^6/ul (4.20-5.40); WHITE BLOOD COUNT 5.71 K/ul (4.6-10.2)
[2017-04-26 09:36] LABS: ALBUMIN 3.8 g/dL (3.4-5.0); ANION GAP 15.2; BUN/CREATININE RATIO 23.17; CALCIUM 9.3 mg/dL (8.2-10.2); CREATININE 0.82 mg/dL (0.60-1.30); PHOSPHORUS 3.7 mg/dL (2.5-4.9); POTASSIUM 4.2 mmol/L (3.5-5.10)
== END 2017-04-26 09:03 | disposition home or self-care (01) ==
LOC: LAB 09:02
PROVIDERS: ATTEND Internal Medicine Nephrology
DX: Z94.0 Kidney transplant status (principal); Z79.899 Other long term (current) drug therapy; E78.5 Hyperlipidemia, unspecified
CPT/HCPCS: 36415; 80069; 80197; 85025

== ENCOUNTER 2017-05-03 09:00 | Outpatient (CLI) ==
[2017-04-09 14:10] VITALS: BMI 34.3
[2017-05-03 09:16] LABS: BASOPHILS % (AUTO) 0.7 % (0.0-3.0); EOSINOPHILS # (AUTO) 0.2 K/ul (0.0-0.7); EOSINOPHILS % (AUTO) 3.8 % (0.0-7.0); HEMATOCRIT 34.3 % (37.0-47.0); HEMOGLOBIN 11.1 g/dl (12.0-16.0); IMMATURE GRANULOCYTE % (AUTO) 0.5 % (0.0-5.0); LYMPHOCYTES # (AUTO) 1.2 K/uL (0.60-3.4); LYMPHOCYTES % (AUTO) 21.1 (10.0-50.0); MEAN CORPUSCULAR HEMOGLOBIN 30.5 pg (27.0-31.0); MEAN CORPUSCULAR HGB CONC 32.4 (31.8-35.4); MEAN CORPUSCULAR VOLUME 94.2 fl (81.0-99.0); MONOCYTES # (AUTO) 0.2 K/uL (0.4-2.0); MONOCYTES % (AUTO) 4.2 (0-10); NEUTROPHILS % (AUTO) 69.7; PLATELET COUNT 197 10^3/uL (140-440); RED BLOOD COUNT 3.64 10^6/ul (4.20-5.40); WHITE BLOOD COUNT 5.78 K/ul (4.6-10.2)
[2017-05-03 09:44] LABS: ALBUMIN 3.5 g/dL (3.4-5.0); ANION GAP 12.4; BUN/CREATININE RATIO 20.23; CALCIUM 9.1 mg/dL (8.2-10.2); CREATININE 0.84 mg/dL (0.60-1.30); POTASSIUM 4.4 mmol/L (3.5-5.10)
== END 2017-05-03 09:01 | disposition home or self-care (01) ==
LOC: LAB 09:00
PROVIDERS: ATTEND Internal Medicine Nephrology
DX: Z94.0 Kidney transplant status (principal); Z79.899 Other long term (current) drug therapy; E78.5 Hyperlipidemia, unspecified
CPT/HCPCS: 36415; 80069; 80197; 85025

== ENCOUNTER 2017-05-10 09:01 | Outpatient (CLI) ==
[2017-04-09 14:10] VITALS: BMI 34.3
[2017-05-10 09:38] LABS: BASOPHILS % (AUTO) 0.8 % (0.0-3.0); EOSINOPHILS # (AUTO) 0.3 K/ul (0.0-0.7); EOSINOPHILS % (AUTO) 5.9 % (0.0-7.0); HEMATOCRIT 35.7 % (37.0-47.0); HEMOGLOBIN 11.5 g/dl (12.0-16.0); IMMATURE GRANULOCYTE % (AUTO) 0.4 % (0.0-5.0); MEAN CORPUSCULAR HEMOGLOBIN 30.4 pg (27.0-31.0); MEAN CORPUSCULAR HGB CONC 32.2 (31.8-35.4); MEAN CORPUSCULAR VOLUME 94.4 fl (81.0-99.0); MONOCYTES # (AUTO) 0.2 K/uL (0.4-2.0); MONOCYTES % (AUTO) 4.8 (0-10); NEUTROPHILS # (AUTO) 3.3 K/ul (2.0-6.9); NEUTROPHILS % (AUTO) 67.1; PLATELET COUNT 203 10^3/uL (140-440); RED BLOOD COUNT 3.78 10^6/ul (4.20-5.40); WHITE BLOOD COUNT 4.95 K/ul (4.6-10.2)
[2017-05-10 09:59] LABS: ALBUMIN 3.6 g/dL (3.4-5.0); BUN/CREATININE RATIO 21.79; CALCIUM 9.3 mg/dL (8.2-10.2); CREATININE 0.78 mg/dL (0.60-1.30); PHOSPHORUS 3.5 mg/dL (2.5-4.9)
== END 2017-05-10 09:02 | disposition home or self-care (01) ==
LOC: LAB 09:01
PROVIDERS: ATTEND Internal Medicine Nephrology
DX: Z94.0 Kidney transplant status (principal); Z79.899 Other long term (current) drug therapy; E78.5 Hyperlipidemia, unspecified
CPT/HCPCS: 36415; 80069; 80197; 85025; 87799

== ENCOUNTER 2017-05-17 09:06 | Outpatient (CLI) ==
[2017-04-09 14:10] VITALS: BMI 34.3
[2017-05-17 09:35] LABS: BASOPHILS % (AUTO) 0.5 % (0.0-3.0); EOSINOPHILS # (AUTO) 0.2 K/ul (0.0-0.7); EOSINOPHILS % (AUTO) 3.7 % (0.0-7.0); HEMATOCRIT 35.1 % (37.0-47.0); HEMOGLOBIN 11.1 g/dl (12.0-16.0); IMMATURE GRANULOCYTE % (AUTO) 0.9 % (0.0-5.0); LYMPHOCYTES # (AUTO) 0.8 K/uL (0.60-3.4); LYMPHOCYTES % (AUTO) 14.3 (10.0-50.0); MEAN CORPUSCULAR HEMOGLOBIN 29.6 pg (27.0-31.0); MEAN CORPUSCULAR HGB CONC 31.6 (31.8-35.4); MEAN CORPUSCULAR VOLUME 93.6 fl (81.0-99.0); MONOCYTES # (AUTO) 0.3 K/uL (0.4-2.0); MONOCYTES % (AUTO) 4.4 (0-10); NEUTROPHILS # (AUTO) 4.3 K/ul (2.0-6.9); NEUTROPHILS % (AUTO) 76.2; PLATELET COUNT 199 10^3/uL (140-440); RED BLOOD COUNT 3.75 10^6/ul (4.20-5.40); WHITE BLOOD COUNT 5.67 K/ul (4.6-10.2)
[2017-05-17 09:57] LABS: ALBUMIN 3.9 g/dL (3.4-5.0); BUN/CREATININE RATIO 24.09; CALCIUM 9.7 mg/dL (8.2-10.2); CREATININE 0.83 mg/dL (0.60-1.30); PHOSPHORUS 3.7 mg/dL (2.5-4.9)
== END 2017-05-17 09:07 | disposition home or self-care (01) ==
LOC: LAB 09:06
PROVIDERS: ATTEND Internal Medicine Nephrology
DX: Z94.0 Kidney transplant status (principal); Z79.899 Other long term (current) drug therapy; E78.5 Hyperlipidemia, unspecified
CPT/HCPCS: 36415; 80069; 80197; 85025

== ENCOUNTER 2017-05-24 09:09 | Outpatient (CLI) ==
[2017-04-09 14:10] VITALS: BMI 34.3
[2017-05-24 09:23] LABS: BASOPHILS % (AUTO) 0.5 % (0.0-3.0); EOSINOPHILS # (AUTO) 0.2 K/ul (0.0-0.7); EOSINOPHILS % (AUTO) 3.4 % (0.0-7.0); HEMATOCRIT 34.5 % (37.0-47.0); HEMOGLOBIN 11.2 g/dl (12.0-16.0); IMMATURE GRANULOCYTE % (AUTO) 1.6 % (0.0-5.0); LYMPHOCYTES # (AUTO) 0.7 K/uL (0.60-3.4); LYMPHOCYTES % (AUTO) 12.3 (10.0-50.0); MEAN CORPUSCULAR HEMOGLOBIN 30.2 pg (27.0-31.0); MEAN CORPUSCULAR HGB CONC 32.5 (31.8-35.4); MONOCYTES # (AUTO) 0.4 K/uL (0.4-2.0); MONOCYTES % (AUTO) 7.5 (0-10); NEUTROPHILS # (AUTO) 4.2 K/ul (2.0-6.9); NEUTROPHILS % (AUTO) 74.7; PLATELET COUNT 223 10^3/uL (140-440); RED BLOOD COUNT 3.71 10^6/ul (4.20-5.40); WHITE BLOOD COUNT 5.63 K/ul (4.6-10.2)
[2017-05-24 09:37] LABS: ALBUMIN 3.8 g/dL (3.4-5.0); ANION GAP 12.9; BUN/CREATININE RATIO 19.73; CALCIUM 9.3 mg/dL (8.2-10.2); CREATININE 0.76 mg/dL (0.60-1.30); PHOSPHORUS 3.5 mg/dL (2.5-4.9); POTASSIUM 3.9 mmol/L (3.5-5.10)
== END 2017-05-24 09:10 | disposition home or self-care (01) ==
LOC: LAB 09:09
PROVIDERS: ATTEND Internal Medicine Nephrology
DX: Z94.0 Kidney transplant status (principal); Z79.899 Other long term (current) drug therapy; E78.5 Hyperlipidemia, unspecified
CPT/HCPCS: 36415; 80069; 80197; 85025

== ENCOUNTER 2017-06-07 08:57 | Outpatient (CLI) ==
[2017-04-09 14:10] VITALS: BMI 34.3
[2017-06-07 09:17] LABS: BASOPHILS % (AUTO) 0.6 % (0.0-3.0); EOSINOPHILS # (AUTO) 0.2 K/ul (0.0-0.7); EOSINOPHILS % (AUTO) 6.3 % (0.0-7.0); HEMATOCRIT 37.3 % (37.0-47.0); IMMATURE GRANULOCYTE % (AUTO) 2.3 % (0.0-5.0); LYMPHOCYTES # (AUTO) 0.8 K/uL (0.60-3.4); LYMPHOCYTES % (AUTO) 21.3 (10.0-50.0); MEAN CORPUSCULAR HGB CONC 32.2 (31.8-35.4); MEAN CORPUSCULAR VOLUME 93.3 fl (81.0-99.0); MONOCYTES # (AUTO) 0.3 K/uL (0.4-2.0); MONOCYTES % (AUTO) 7.1 (0-10); NEUTROPHILS # (AUTO) 2.2 K/ul (2.0-6.9); NEUTROPHILS % (AUTO) 62.4; PLATELET COUNT 206 10^3/uL (140-440); WHITE BLOOD COUNT 3.52 K/ul (4.6-10.2)
[2017-06-07 09:48] LABS: ALBUMIN 3.9 g/dL (3.4-5.0); ANION GAP 13.1; BUN/CREATININE RATIO 28.57; CALCIUM 9.4 mg/dL (8.2-10.2); CREATININE 0.77 mg/dL (0.60-1.30); PHOSPHORUS 3.3 mg/dL (2.5-4.9); POTASSIUM 4.1 mmol/L (3.5-5.10)
== END 2017-06-07 08:58 | disposition home or self-care (01) ==
LOC: LAB 08:57
PROVIDERS: ATTEND Internal Medicine Nephrology
DX: Z94.0 Kidney transplant status (principal); Z79.899 Other long term (current) drug therapy; E78.5 Hyperlipidemia, unspecified
CPT/HCPCS: 36415; 80069; 80197; 85025; 87799

== ENCOUNTER 2017-06-10 14:05 | Outpatient (CLI) | payer OTHER ==
[2017-04-09 14:10] VITALS: BMI 34.3
[2017-06-10 14:59] LABS: CHOL/HDL RATIO 3.2 (4.5-5.5)
== END 2017-06-10 14:06 | disposition home or self-care (01) ==
LOC: LAB 14:05
PROVIDERS: ATTEND Internal Medicine
DX: Z94.0 Kidney transplant status (principal); I10 Essential (primary) hypertension; E78.5 Hyperlipidemia, unspecified; N18.9 Chronic kidney disease, unspecified; D63.1 Anemia in chronic kidney disease; E03.9 Hypothyroidism, unspecified
CPT/HCPCS: 36415; 80061; 84439; 84443

== ENCOUNTER 2017-06-14 09:02 | Outpatient (CLI) ==
[2017-04-09 14:10] VITALS: BMI 34.3
[2017-06-14 09:21] LABS: BASOPHILS % (AUTO) 0.7 % (0.0-3.0); EOSINOPHILS # (AUTO) 0.1 K/ul (0.0-0.7); EOSINOPHILS % (AUTO) 4.6 % (0.0-7.0); HEMATOCRIT 36.9 % (37.0-47.0); HEMOGLOBIN 11.9 g/dl (12.0-16.0); IMMATURE GRANULOCYTE % (AUTO) 1.3 % (0.0-5.0); LYMPHOCYTES # (AUTO) 0.7 K/uL (0.60-3.4); LYMPHOCYTES % (AUTO) 21.2 (10.0-50.0); MEAN CORPUSCULAR HEMOGLOBIN 29.9 pg (27.0-31.0); MEAN CORPUSCULAR HGB CONC 32.2 (31.8-35.4); MEAN CORPUSCULAR VOLUME 92.7 fl (81.0-99.0); MONOCYTES # (AUTO) 0.4 K/uL (0.4-2.0); MONOCYTES % (AUTO) 11.7 (0-10); NEUTROPHILS # (AUTO) 1.9 K/ul (2.0-6.9); NEUTROPHILS % (AUTO) 60.5; PLATELET COUNT 190 10^3/uL (140-440); RED BLOOD COUNT 3.98 10^6/ul (4.20-5.40); WHITE BLOOD COUNT 3.07 K/ul (4.6-10.2)
[2017-06-14 09:39] LABS: ALBUMIN 3.7 g/dL (3.4-5.0); ANION GAP 13.9; BUN/CREATININE RATIO 18.18; CALCIUM 9.4 mg/dL (8.2-10.2); CREATININE 0.77 mg/dL (0.60-1.30); PHOSPHORUS 3.3 mg/dL (2.5-4.9); POTASSIUM 3.9 mmol/L (3.5-5.10)
== END 2017-06-14 09:03 | disposition home or self-care (01) ==
LOC: LAB 09:02
PROVIDERS: ATTEND Internal Medicine Nephrology
DX: Z94.0 Kidney transplant status (principal); Z79.899 Other long term (current) drug therapy; E78.5 Hyperlipidemia, unspecified
CPT/HCPCS: 36415; 80069; 80197; 85025

== ENCOUNTER 2017-06-21 09:12 | Outpatient (CLI) ==
[2017-04-09 14:10] VITALS: BMI 34.3
[2017-06-21 09:32] LABS: BASOPHILS % (AUTO) 0.4 % (0.0-3.0); EOSINOPHILS # (AUTO) 0.1 K/ul (0.0-0.7); EOSINOPHILS % (AUTO) 3.9 % (0.0-7.0); HEMATOCRIT 36.5 % (37.0-47.0); HEMOGLOBIN 11.8 g/dl (12.0-16.0); IMMATURE GRANULOCYTE % (AUTO) 4.9 % (0.0-5.0); LYMPHOCYTES # (AUTO) 0.9 K/uL (0.60-3.4); LYMPHOCYTES % (AUTO) 29.8 (10.0-50.0); MEAN CORPUSCULAR HGB CONC 32.3 (31.8-35.4); MEAN CORPUSCULAR VOLUME 92.9 fl (81.0-99.0); MONOCYTES # (AUTO) 0.3 K/uL (0.4-2.0); MONOCYTES % (AUTO) 11.2 (0-10); NEUTROPHILS # (AUTO) 1.4 K/ul (2.0-6.9); NEUTROPHILS % (AUTO) 49.8; PLATELET COUNT 204 10^3/uL (140-440); RED BLOOD COUNT 3.93 10^6/ul (4.20-5.40); WHITE BLOOD COUNT 2.85 K/ul (4.6-10.2)
[2017-06-21 09:47] LABS: ALBUMIN 3.7 g/dL (3.4-5.0); BUN/CREATININE RATIO 25.67; CALCIUM 9.4 mg/dL (8.2-10.2); CREATININE 0.74 mg/dL (0.60-1.30); PHOSPHORUS 3.2 mg/dL (2.5-4.9)
== END 2017-06-21 09:13 | disposition home or self-care (01) ==
LOC: LAB 09:12
PROVIDERS: ATTEND Internal Medicine Nephrology
DX: Z94.0 Kidney transplant status (principal); Z79.899 Other long term (current) drug therapy; E78.5 Hyperlipidemia, unspecified
CPT/HCPCS: 36415; 80069; 80197; 85025

== ENCOUNTER 2017-07-19 09:07 | Outpatient (CLI) ==
[2017-04-09 14:10] VITALS: BMI 34.3
[2017-07-19 09:29] LABS: BASOPHILS % (AUTO) 0.4 % (0.0-3.0); EOSINOPHILS # (AUTO) 0.3 K/ul (0.0-0.7); EOSINOPHILS % (AUTO) 3.5 % (0.0-7.0); HEMATOCRIT 38.1 % (37.0-47.0); HEMOGLOBIN 12.4 g/dl (12.0-16.0); IMMATURE GRANULOCYTE % (AUTO) 0.5 % (0.0-5.0); LYMPHOCYTES # (AUTO) 1.1 K/uL (0.60-3.4); LYMPHOCYTES % (AUTO) 15.3 (10.0-50.0); MEAN CORPUSCULAR HEMOGLOBIN 29.2 pg (27.0-31.0); MEAN CORPUSCULAR HGB CONC 32.5 (31.8-35.4); MEAN CORPUSCULAR VOLUME 89.9 fl (81.0-99.0); MONOCYTES # (AUTO) 0.4 K/uL (0.4-2.0); MONOCYTES % (AUTO) 5.8 (0-10); NEUTROPHILS # (AUTO) 5.5 K/ul (2.0-6.9); NEUTROPHILS % (AUTO) 74.5; PLATELET COUNT 210 10^3/uL (140-440); RED BLOOD COUNT 4.24 10^6/ul (4.20-5.40); WHITE BLOOD COUNT 7.43 K/ul (4.6-10.2)
[2017-07-19 09:46] LABS: ALBUMIN 3.7 g/dL (3.4-5.0); ANION GAP 14.1; BUN/CREATININE RATIO 20.48; CALCIUM 9.3 mg/dL (8.2-10.2); CREATININE 0.83 mg/dL (0.60-1.30); PHOSPHORUS 3.6 mg/dL (2.5-4.9); POTASSIUM 4.1 mmol/L (3.5-5.10)
== END 2017-07-19 09:08 | disposition home or self-care (01) ==
LOC: LAB 09:07
PROVIDERS: ATTEND Internal Medicine Nephrology
DX: Z94.0 Kidney transplant status (principal); Z79.899 Other long term (current) drug therapy; E78.5 Hyperlipidemia, unspecified
CPT/HCPCS: 36415; 80069; 80197; 85025

== ENCOUNTER 2017-08-02 09:08 | Outpatient (CLI) ==
[2017-04-09 14:10] VITALS: BMI 34.3
[2017-08-02 09:33] LABS: BASOPHILS % (AUTO) 0.6 % (0.0-3.0); EOSINOPHILS # (AUTO) 0.2 K/ul (0.0-0.7); EOSINOPHILS % (AUTO) 3.2 % (0.0-7.0); HEMATOCRIT 37.2 % (37.0-47.0); HEMOGLOBIN 12.1 g/dl (12.0-16.0); IMMATURE GRANULOCYTE % (AUTO) 0.1 % (0.0-5.0); LYMPHOCYTES # (AUTO) 1.3 K/uL (0.60-3.4); LYMPHOCYTES % (AUTO) 17.4 (10.0-50.0); MEAN CORPUSCULAR HEMOGLOBIN 29.7 pg (27.0-31.0); MEAN CORPUSCULAR HGB CONC 32.5 (31.8-35.4); MEAN CORPUSCULAR VOLUME 91.2 fl (81.0-99.0); MONOCYTES # (AUTO) 0.5 K/uL (0.4-2.0); MONOCYTES % (AUTO) 6.5 (0-10); NEUTROPHILS # (AUTO) 5.2 K/ul (2.0-6.9); NEUTROPHILS % (AUTO) 72.2; PLATELET COUNT 228 10^3/uL (140-440); RED BLOOD COUNT 4.08 10^6/ul (4.20-5.40); WHITE BLOOD COUNT 7.24 K/ul (4.6-10.2)
[2017-08-02 09:50] LABS: ALBUMIN 3.7 g/dL (3.4-5.0); ANION GAP 11.6; CALCIUM 9.4 mg/dL (8.2-10.2); CREATININE 0.8 mg/dL (0.60-1.30); POTASSIUM 4.6 mmol/L (3.5-5.10)
== END 2017-08-02 09:09 | disposition home or self-care (01) ==
LOC: LAB 09:08
PROVIDERS: ATTEND Internal Medicine Nephrology
DX: Z94.0 Kidney transplant status (principal); Z79.899 Other long term (current) drug therapy; E78.5 Hyperlipidemia, unspecified
CPT/HCPCS: 36415; 80069; 80197; 85025; 87799

== ENCOUNTER 2017-08-16 09:10 | Outpatient (CLI) ==
[2017-04-09 14:10] VITALS: BMI 34.3
[2017-08-16 09:25] LABS: BASOPHILS % (AUTO) 0.5 % (0.0-3.0); EOSINOPHILS # (AUTO) 0.3 K/ul (0.0-0.7); EOSINOPHILS % (AUTO) 3.9 % (0.0-7.0); HEMATOCRIT 36.8 % (37.0-47.0); IMMATURE GRANULOCYTE % (AUTO) 0.5 % (0.0-5.0); LYMPHOCYTES # (AUTO) 1.2 K/uL (0.60-3.4); LYMPHOCYTES % (AUTO) 17.9 (10.0-50.0); MEAN CORPUSCULAR HGB CONC 32.6 (31.8-35.4); MEAN CORPUSCULAR VOLUME 88.9 fl (81.0-99.0); MONOCYTES # (AUTO) 0.4 K/uL (0.4-2.0); MONOCYTES % (AUTO) 5.6 (0-10); NEUTROPHILS # (AUTO) 4.8 K/ul (2.0-6.9); NEUTROPHILS % (AUTO) 71.6; PLATELET COUNT 236 10^3/uL (140-440); RED BLOOD COUNT 4.14 10^6/ul (4.20-5.40); WHITE BLOOD COUNT 6.64 K/ul (4.6-10.2)
[2017-08-16 09:44] LABS: ALBUMIN 3.7 g/dL (3.4-5.0); ANION GAP 13.3; BUN/CREATININE RATIO 19.23; CALCIUM 9.4 mg/dL (8.2-10.2); CREATININE 0.78 mg/dL (0.60-1.30); PHOSPHORUS 3.2 mg/dL (2.5-4.9); POTASSIUM 4.3 mmol/L (3.5-5.10)
== END 2017-08-16 09:11 | disposition home or self-care (01) ==
LOC: LAB 09:10
PROVIDERS: ATTEND Internal Medicine Nephrology
DX: Z94.0 Kidney transplant status (principal); Z79.899 Other long term (current) drug therapy; E78.5 Hyperlipidemia, unspecified
CPT/HCPCS: 36415; 80069; 80197; 85025

== ENCOUNTER 2017-08-30 08:59 | Outpatient (CLI) ==
[2017-04-09 14:10] VITALS: BMI 34.3
== END 2017-08-30 09:00 | disposition home or self-care (01) ==
LOC: LAB 08:59
PROVIDERS: ATTEND Internal Medicine Nephrology
DX: Z94.0 Kidney transplant status (principal); Z79.899 Other long term (current) drug therapy; E78.5 Hyperlipidemia, unspecified
CPT/HCPCS: 36415; 80053; 80061; 80069; 80197; 84100; 85025; 87799

== ENCOUNTER 2017-09-13 09:12 | Outpatient (CLI) ==
[2017-04-09 14:10] VITALS: BMI 34.3
== END 2017-09-13 09:13 | disposition home or self-care (01) ==
LOC: LAB 09:12
PROVIDERS: ATTEND Internal Medicine Nephrology
DX: Z94.0 Kidney transplant status (principal); Z79.899 Other long term (current) drug therapy; E78.5 Hyperlipidemia, unspecified
CPT/HCPCS: 36415; 80069; 80197; 85025

== ENCOUNTER 2017-09-27 09:05 | Outpatient (CLI) ==
[2017-04-09 14:10] VITALS: BMI 34.3
== END 2017-09-27 09:06 | disposition home or self-care (01) ==
LOC: LAB 09:05
PROVIDERS: ATTEND Internal Medicine Nephrology
DX: Z94.0 Kidney transplant status (principal); Z79.899 Other long term (current) drug therapy; E78.5 Hyperlipidemia, unspecified
CPT/HCPCS: 36415; 80069; 80197; 85025

== ENCOUNTER 2017-10-11 09:05 | Outpatient (CLI) | payer OTHER ==
[2017-04-09 14:10] VITALS: BMI 34.3
== END 2017-10-11 09:06 | disposition home or self-care (01) ==
LOC: LAB 09:05
PROVIDERS: ATTEND Internal Medicine Nephrology
DX: Z94.0 Kidney transplant status (principal); Z79.899 Other long term (current) drug therapy; E78.5 Hyperlipidemia, unspecified
CPT/HCPCS: 36415; 80069; 80197; 85025; 87799

== ENCOUNTER 2017-10-25 09:01 | Outpatient (CLI) ==
[2017-04-09 14:10] VITALS: BMI 34.3
== END 2017-10-25 09:02 | disposition home or self-care (01) ==
LOC: LAB 09:01
PROVIDERS: ATTEND Internal Medicine Nephrology
DX: Z94.0 Kidney transplant status (principal); Z79.899 Other long term (current) drug therapy; E78.5 Hyperlipidemia, unspecified
CPT/HCPCS: 36415; 80069; 80197; 85025

== ENCOUNTER 2017-11-08 09:06 | Outpatient (CLI) ==
[2017-04-09 14:10] VITALS: BMI 34.3
== END 2017-11-08 09:07 | disposition home or self-care (01) ==
LOC: LAB 09:06
PROVIDERS: ATTEND Internal Medicine Nephrology
DX: Z94.0 Kidney transplant status (principal); Z79.899 Other long term (current) drug therapy; E78.5 Hyperlipidemia, unspecified
CPT/HCPCS: 36415; 80069; 80197; 85025

== ENCOUNTER 2017-11-22 09:07 | Outpatient (CLI) ==
[2017-04-09 14:10] VITALS: BMI 34.3
== END 2017-11-22 09:08 | disposition home or self-care (01) ==
LOC: LAB 09:07
PROVIDERS: ATTEND Internal Medicine Nephrology
DX: Z94.0 Kidney transplant status (principal); Z79.899 Other long term (current) drug therapy; E78.5 Hyperlipidemia, unspecified
CPT/HCPCS: 36415; 80069; 80197; 85025; 87799

== ENCOUNTER 2017-12-06 09:12 | Outpatient (CLI) ==
[2017-04-09 14:10] VITALS: BMI 34.3
== END 2017-12-06 09:13 | disposition home or self-care (01) ==
LOC: LAB 09:12
PROVIDERS: ATTEND Internal Medicine Nephrology
DX: Z94.0 Kidney transplant status (principal); Z79.899 Other long term (current) drug therapy; I10 Essential (primary) hypertension; E78.5 Hyperlipidemia, unspecified; E10.65 Type 1 diabetes mellitus with hyperglycemia
CPT/HCPCS: 36415; 80053; 80197; 81001; 82306; 82570; 83735; 84100; 84156; 84550; 85025; 87086; 87799

== ENCOUNTER 2017-12-20 09:08 | Outpatient (CLI) ==
[2017-04-09 14:10] VITALS: BMI 34.3
== END 2017-12-20 09:09 | disposition home or self-care (01) ==
LOC: LAB 09:08
PROVIDERS: ATTEND Internal Medicine Nephrology
DX: Z94.0 Kidney transplant status (principal); Z79.899 Other long term (current) drug therapy; E78.5 Hyperlipidemia, unspecified; E10.65 Type 1 diabetes mellitus with hyperglycemia
CPT/HCPCS: 36415; 80069; 80197; 85025

== ENCOUNTER 2017-12-28 14:14 | Outpatient (CLI) ==
[2017-04-09 14:10] VITALS: BMI 34.3
== END 2017-12-28 14:15 | disposition home or self-care (01) ==
LOC: LAB 14:14
PROVIDERS: ATTEND Internal Medicine Nephrology
DX: Z94.0 Kidney transplant status (principal); N39.0 Urinary tract infection, site not specified
CPT/HCPCS: 87086

== ENCOUNTER 2018-01-03 09:13 | Outpatient (CLI) ==
[2017-04-09 14:10] VITALS: BMI 34.3
== END 2018-01-03 09:14 | disposition home or self-care (01) ==
LOC: LAB 09:13
PROVIDERS: ATTEND Internal Medicine Nephrology
DX: Z94.0 Kidney transplant status (principal); Z79.899 Other long term (current) drug therapy; E78.5 Hyperlipidemia, unspecified; E10.65 Type 1 diabetes mellitus with hyperglycemia
CPT/HCPCS: 36415; 80069; 80197; 85025; 87799

== ENCOUNTER 2018-01-31 09:00 | Outpatient (CLI) ==
[2017-04-09 14:10] VITALS: BMI 34.3
== END 2018-01-31 09:01 | disposition home or self-care (01) ==
LOC: LAB 09:00
PROVIDERS: ATTEND Internal Medicine Nephrology
DX: Z94.0 Kidney transplant status (principal); Z79.899 Other long term (current) drug therapy; E78.5 Hyperlipidemia, unspecified; E10.65 Type 1 diabetes mellitus with hyperglycemia
CPT/HCPCS: 36415; 80069; 80197; 85025; 87799

== ENCOUNTER 2018-02-14 09:09 | Outpatient (CLI) ==
[2017-04-09 14:10] VITALS: BMI 34.3
== END 2018-02-14 09:10 | disposition home or self-care (01) ==
LOC: LAB 09:09
PROVIDERS: ATTEND Internal Medicine Nephrology
DX: Z94.0 Kidney transplant status (principal); Z79.899 Other long term (current) drug therapy; E78.5 Hyperlipidemia, unspecified; E10.65 Type 1 diabetes mellitus with hyperglycemia
CPT/HCPCS: 36415; 80053; 80069; 80197; 85025

== ENCOUNTER 2018-02-28 09:09 | Outpatient (CLI) ==
[2017-04-09 14:10] VITALS: BMI 34.3
== END 2018-02-28 09:10 | disposition home or self-care (01) ==
LOC: LAB 09:09
PROVIDERS: ATTEND Internal Medicine Nephrology
DX: Z94.0 Kidney transplant status (principal); Z79.899 Other long term (current) drug therapy; E78.5 Hyperlipidemia, unspecified; E10.65 Type 1 diabetes mellitus with hyperglycemia
CPT/HCPCS: 36415; 80053; 80061; 80197; 83036; 84100; 85025; 87799

== ENCOUNTER 2018-04-06 09:16 | Outpatient (CLI) ==
[2017-04-09 14:10] VITALS: BMI 34.3
== END 2018-04-06 09:17 | disposition home or self-care (01) ==
LOC: LAB 09:16
PROVIDERS: ATTEND Internal Medicine Nephrology
DX: Z94.0 Kidney transplant status (principal); Z79.899 Other long term (current) drug therapy; E10.65 Type 1 diabetes mellitus with hyperglycemia; E78.4 Other hyperlipidemia
CPT/HCPCS: 36415; 80053; 80061; 80197; 83036; 84100; 85025

== ENCOUNTER 2018-04-11 14:05 | Outpatient (CLI) ==
[2017-04-09 14:10] VITALS: BMI 34.3
== END 2018-04-11 14:06 | disposition home or self-care (01) ==
LOC: LAB 14:05
PROVIDERS: ATTEND Nurse Practitioner
DX: Z94.0 Kidney transplant status (principal); E55.9 Vitamin D deficiency, unspecified; E78.5 Hyperlipidemia, unspecified; E10.65 Type 1 diabetes mellitus with hyperglycemia; Z79.899 Other long term (current) drug therapy
CPT/HCPCS: 36415; 80053; 80197; 81001; 82306; 82570; 83735; 83970; 84100; 84156; 84550; 85027

== ENCOUNTER 2018-05-03 09:00 | Outpatient (CLI) ==
[2017-04-09 14:10] VITALS: BMI 34.3
== END 2018-05-03 09:01 | disposition home or self-care (01) ==
LOC: LAB 09:00
PROVIDERS: ATTEND Internal Medicine Nephrology
DX: Z94.0 Kidney transplant status (principal); Z79.899 Other long term (current) drug therapy; E10.65 Type 1 diabetes mellitus with hyperglycemia; E78.4 Other hyperlipidemia
CPT/HCPCS: 36415; 80053; 80061; 80197; 83036; 84100; 85025

== ENCOUNTER 2018-05-30 09:07 | Outpatient (CLI) ==
[2017-04-09 14:10] VITALS: BMI 34.3
== END 2018-05-30 09:08 | disposition home or self-care (01) ==
LOC: LAB 09:07
PROVIDERS: ATTEND Internal Medicine Nephrology
DX: Z94.0 Kidney transplant status (principal); Z79.899 Other long term (current) drug therapy; E10.65 Type 1 diabetes mellitus with hyperglycemia; E78.49 Other hyperlipidemia
CPT/HCPCS: 36415; 80053; 80061; 80197; 83036; 84100; 85025

== ENCOUNTER 2018-06-02 16:23 | Outpatient (CLI) ==
[2017-04-09 14:10] VITALS: BMI 34.3
== END 2018-06-02 16:24 | disposition home or self-care (01) ==
LOC: LAB 16:23
PROVIDERS: ATTEND Internal Medicine
DX: Z94.0 Kidney transplant status (principal); E78.5 Hyperlipidemia, unspecified; I10 Essential (primary) hypertension
CPT/HCPCS: 36415; 82607; 82728; 82746; 83540; 83550; 84439; 84443; 84466; 85045

== ENCOUNTER 2018-06-10 14:04 | Outpatient (CLI) ==
[2017-04-09 14:10] VITALS: BMI 34.3
--- NOTE | 2018-06-13 10:24 | MAMMO ---
EXAM: Digital screening mammogram with tomosynthesis HISTORY: Screening COMPARISON: 11/16/2016 FINDINGS: Digital MLO and CC views of the right and left breast were performed. Tomosynthesis was p erformed. Computer aided detection utilized. There are scattered fibroglandular densities. There is no evidence for mass, asymmetry, distortion, or suspicious calcifications in either breast. IMPRESSION: 1. No evidence of malignancy in the right or left breast. 2. Annual screening mammogram is recommended in one year. BIRADS category 1, negative examination
== END 2018-06-10 14:05 | disposition home or self-care (01) ==
LOC: RAD 14:04
PROVIDERS: ATTEND Internal Medicine
DX: Z12.31 Encounter for screening mammogram for malignant neoplasm of breast (principal)
CPT/HCPCS: 77067

== ENCOUNTER 2018-07-04 09:14 | Outpatient (CLI) ==
[2017-04-09 14:10] VITALS: BMI 34.3
== END 2018-07-04 09:15 | disposition home or self-care (01) ==
LOC: LAB 09:14
PROVIDERS: ATTEND Internal Medicine Nephrology
DX: Z94.0 Kidney transplant status (principal); Z79.899 Other long term (current) drug therapy; E78.49 Other hyperlipidemia; E10.65 Type 1 diabetes mellitus with hyperglycemia
CPT/HCPCS: 36415; 80053; 80061; 80197; 83036; 84100; 85025

== ENCOUNTER 2018-09-01 09:09 | Outpatient (CLI) ==
[2017-04-09 14:10] VITALS: BMI 34.3
== END 2018-09-01 09:10 | disposition home or self-care (01) ==
LOC: LAB 09:09
PROVIDERS: ATTEND Internal Medicine Nephrology
DX: Z94.0 Kidney transplant status (principal)
CPT/HCPCS: 36415; 80069

== ENCOUNTER 2018-09-08 15:08 | Outpatient (CLI) | payer OTHER ==
[2017-04-09 14:10] VITALS: BMI 34.3
== END 2018-09-08 15:09 | disposition home or self-care (01) ==
LOC: LAB 15:08
PROVIDERS: ATTEND Nurse Practitioner
DX: Z94.0 Kidney transplant status (principal)
CPT/HCPCS: 36415; 80053; 80197; 85025

== ENCOUNTER 2018-09-30 09:10 | Outpatient (CLI) | payer OTHER ==
[2017-04-09 14:10] VITALS: BMI 34.3
== END 2018-09-30 09:11 | disposition home or self-care (01) ==
LOC: LAB 09:10
PROVIDERS: ATTEND Internal Medicine Nephrology
DX: Z94.0 Kidney transplant status (principal)
CPT/HCPCS: 36415; 80069

== ENCOUNTER 2018-10-31 09:10 | Outpatient (CLI) | payer OTHER ==
[2017-04-09 14:10] VITALS: BMI 34.3
== END 2018-10-31 09:11 | disposition home or self-care (01) ==
LOC: LAB 09:10
PROVIDERS: ATTEND Internal Medicine Nephrology
DX: Z94.0 Kidney transplant status (principal)
CPT/HCPCS: 36415; 80069

== ENCOUNTER 2018-11-21 14:05 | Outpatient (CLI) | payer OTHER ==
[2017-04-09 14:10] VITALS: BMI 34.3
== END 2018-11-21 14:06 | disposition home or self-care (01) ==
LOC: LAB 14:05
PROVIDERS: ATTEND Nurse Practitioner
DX: Z94.0 Kidney transplant status (principal)
CPT/HCPCS: 36415; 80053; 80197; 81001; 82570; 83735; 84100; 84156; 84300; 84550; 85025

== ENCOUNTER 2018-11-30 09:06 | Outpatient (CLI) | payer OTHER ==
[2017-04-09 14:10] VITALS: BMI 34.3
== END 2018-11-30 09:07 | disposition home or self-care (01) ==
LOC: LAB 09:06
PROVIDERS: ATTEND Internal Medicine Nephrology
DX: Z94.0 Kidney transplant status (principal); Z79.899 Other long term (current) drug therapy; E78.49 Other hyperlipidemia; E10.65 Type 1 diabetes mellitus with hyperglycemia
CPT/HCPCS: 36415; 80053; 80061; 80197; 83036; 84100; 85025

== ENCOUNTER 2018-12-29 09:07 | Outpatient (CLI) | payer OTHER ==
[2017-04-09 14:10] VITALS: BMI 34.3
== END 2018-12-29 09:08 | disposition home or self-care (01) ==
LOC: LAB 09:07
PROVIDERS: ATTEND Internal Medicine Nephrology
DX: Z94.0 Kidney transplant status (principal)
CPT/HCPCS: 36415; 80069

== ENCOUNTER 2019-01-30 09:12 | Outpatient (CLI) | payer OTHER ==
[2017-04-09 14:10] VITALS: BMI 34.3
== END 2019-01-30 09:13 | disposition home or self-care (01) ==
LOC: LAB 09:12
PROVIDERS: ATTEND Internal Medicine Nephrology
DX: Z94.0 Kidney transplant status (principal)
CPT/HCPCS: 36415; 80053; 84100

== ENCOUNTER 2019-02-28 09:08 | Outpatient (CLI) ==
[2017-04-09 14:10] VITALS: BMI 34.3
== END 2019-02-28 09:09 | disposition home or self-care (01) ==
LOC: LAB 09:08
PROVIDERS: ATTEND Internal Medicine Nephrology
DX: Z94.0 Kidney transplant status (principal); Z79.899 Other long term (current) drug therapy; E10.65 Type 1 diabetes mellitus with hyperglycemia; E78.49 Other hyperlipidemia
CPT/HCPCS: 36415; 80069

== ENCOUNTER 2019-05-02 09:06 | Outpatient (CLI) ==
[2017-04-09 14:10] VITALS: BMI 34.3
== END 2019-05-02 09:07 | disposition home or self-care (01) ==
LOC: LAB 09:06
PROVIDERS: ATTEND Nurse Practitioner
DX: Z94.0 Kidney transplant status (principal); Z79.899 Other long term (current) drug therapy; E10.65 Type 1 diabetes mellitus with hyperglycemia; E78.49 Other hyperlipidemia
CPT/HCPCS: 36415; 80053; 80197; 81001; 82248; 82570; 83735; 84100; 84156; 84550; 85025